=== PATIENT | male | born 1955 | race Caucasian/White ===

== ENCOUNTER 2017-01-06 05:08 | Emergency (ER) | payer OTHER ==
--- NOTE | 2017-01-06 22:49 | ER ---
ADMIT: 01/06/2017 RM/LOC: ER [facility] MR#: [id number] [facility] [address] [place] [id number] HISHEILA S [address] [place] [address] Emergency Room Report SEX: M AGE: 61 : 1955 DATE: 01/06/2017 The patient is a 61-year-old male, alcoholic, dry for the past 9 years. Fell off the [employer], drank a 5th of Black Velvet, requests help. Transported by [employer]. Exam remarkable for nontoxic, afebrile male. ETOH 135. No prior history of alcohol withdrawal seizure. Discussed case with Eliza Perez, who will do an assessment. The patient was in agreement with this and discharged. Forest Loyola MD/ ke JOB #: [id number] CC: Forest Loyola MD, Attending Physician . [facility]
== END 2017-01-06 06:13 | disposition home or self-care (01) ==
LOC: ER 05:08
DX: F10.180 Alcohol abuse with alcohol-induced anxiety disorder (principal); I10 Essential (primary) hypertension; F17.210 Nicotine dependence, cigarettes, uncomplicated; Z79.899 Other long term (current) drug therapy